=== PATIENT | female | born 1965 | race Caucasian/White ===

== ENCOUNTER 2019-02-20 14:57 | Emergency (ER) | payer BC, SELFPAY ==
[2019-02-20 15:06] VITALS: BP 144/84; PULSE 89; RESP 18; TEMP 36.7; O2SAT 100
--- NOTE | 2019-02-20 15:18 | DI.RAD_ITS ---
EXAM: XR CLAVICLE RT INDICATION: fall. COMPARISON: No exams were available for comparison TECHNIQUE: 2D digital imaging was performed. FINDINGS: Two views were obtained. There fracture of the distal clavicle with moderate displacement. No addit ional fracture identified. IMPRESSION:
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
--- NOTE | 2019-02-20 16:25 | DI.VRAD_ITS ---
PROCEDURE INFORMATION: Exam: XR Right Clavicle, Complete Exam date and time: 02/20/2019 4:07 PM Clinical history: 53 years old, female; Pain; Shoulder; Right TECHNIQUE: Imaging protocol: XR Right clavicle complete. Any number of views. COMPARISON: No relevant prior studies available. FINDINGS: Bones/joints: Fracture in the distal clavicle. No definite extension to the acromioclavicular joint. Soft tissues: Normal. IMPRESSION: Fracture in the distal clavicle. Dictated and Authenticated by: Edita Rocha MD. Ordering:SINDY Damon MD
== END 2019-02-20 17:33 | disposition home or self-care (01) ==
PROVIDERS: Emergency Provider Physician Assistant
DX: S42.034A Nondisplaced fracture of lateral end of right clavicle, initial encounter for closed fracture (principal); V17.0XXA Pedal cycle driver injured in collision with fixed or stationary object in nontraffic accident, initial encounter
CPT/HCPCS: 99283; 73000; 99282; L3650